=== PATIENT | male | born 1990 | race Caucasian/White ===

== ENCOUNTER 2019-06-02 22:14 | Emergency (ER) | payer SELFPAY ==
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
[2019-06-02] MEDS: MORPHINE SULFATE INJ 10 MG/ML VIAL IV ONE (22:39)
[2019-06-02] MEDS: SODIUM CHLORIDE 0.9% 1000ML 1,000 ML IVS PRN (22:39)
[2019-06-02] MEDS: ONDANSETRON INJ 4 MG/2 ML VIAL IV ONE (22:40)
[2019-06-02] MEDS: SODIUM CHLORIDE 0.9% (FLUSH) 10 ML SYG IV PRN (22:45)
--- NOTE | 2019-06-02 23:03 | RAD ---
EXAM DESCRIPTION: Shoulder,Left 2 or More Views CLINICAL HISTORY: 29 years Male, [place] COMPARISON: None. FINDINGS: No fracture or dislocation. Soft tissues are unremarkable. IMPRESSION: No acute abnormality. Electronically signed by: López Saleem MD 06/02/2019 11:01 PM CDT
[2019-06-02 23:46] VITALS: O2SAT 97
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
--- NOTE | 2019-06-02 23:55 | CT ---
CLINICAL HISTORY: trauma COMPARISON: None. TECHNIQUE: CT CERVICAL SPINE WITHOUT IV CONTRAST on 06/02/2019 10:27 PM CDT This exam was performed according to our departmental dose-optimization program, which includes automated exposure control, adjustment of the mA and/or kV according to patient size and/or use of iterative reconstruction technique. FINDINGS: There is no acute fracture. Alignment is anatomic. Disc spaces are maintained. Vertebral body heights are preserved. Soft tissues are unremarkable. IMPRESSION: No acute fracture or subluxation. Electronically signed by: Dillon Kelley MD 06/02/2019 11:54 PM CDT
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
[2019-06-03 00:32] VITALS: BP 132/90; TEMP 98.1
== END 2019-06-03 00:34 | disposition home or self-care (01) ==
LOC: ER 22:14
DX: S20.212A Contusion of left front wall of thorax, initial encounter (principal); S43.102A Unspecified dislocation of left acromioclavicular joint, initial encounter; S09.90XA Unspecified injury of head, initial encounter; S00.91XA Abrasion of unspecified part of head, initial encounter; W17.89XA Other fall from one level to another, initial encounter; Z87.891 Personal history of nicotine dependence; Y92.9 Unspecified place or not applicable
CPT/HCPCS: 70450; 71260; 72125; 73030; 74177; 80053; 80320; 85025; J2270; J2405; J7030

== ENCOUNTER 2020-03-22 22:36 | Emergency (ER) | payer SELFPAY ==
[2020-03-22] MEDS ORDERED: SODIUM CHLORIDE 0.9% 1000ML 1,000 ML IVS ONE (22:51)
[2020-03-22] MEDS ORDERED: TRANEXAMIC ACID 1,000 MG/10 ML VIAL IV ONE (22:51)
[2020-03-22] MEDS ORDERED: MORPHINE SULFATE INJ 10 MG/ML VIAL IV ONE (22:54)
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
[2020-03-22] MEDS: ONDANSETRON INJ 4 MG/2 ML VIAL IV ONE (23:13)
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
[2020-03-22 23:27] VITALS: TEMP 97.4
[2020-03-22] MEDS ORDERED: cefTRIAXone SODIUM 1 GM VIAL ONE (23:47)
[2020-03-22] MEDS ORDERED: TETANUS,DIPHTHERIA,PERTUSSIS 1 EA SYG IM ONE ×2 (23:47→23:48)
[2020-03-22] MEDS ORDERED: SODIUM CHL 0.9% 50ML MIN-BAG+ 50 ML IVPB ONE (23:47)
[2020-03-22] MEDS ORDERED: cefTRIAXone SODIUM 1 GM in SODIUM CHL 0.9% 50ML MIN-BAG+ 50 ML IVPB ONE (23:48)
[2020-03-23 02:55] VITALS: BP 107/83; O2SAT 96
== END 2020-03-22 23:58 | disposition short-term general hospital (02) ==
LOC: ER 22:36
DX: S31.104A Unspecified open wound of abdominal wall, left lower quadrant without penetration into peritoneal cavity, initial encounter (principal); R11.0 Nausea; X95.9XXA Assault by unspecified firearm discharge, initial encounter; Y93.02 Activity, running; Y92.830 Public park as the place of occurrence of the external cause; Z87.891 Personal history of nicotine dependence
CPT/HCPCS: 71250; 74176; 80053; 80307; 80320; 81001; 82550; 82553; 84484; 85025; 85610; 85730; 86922; 90471; 90715; J0696; J2270; J2405; J7030; J7050; P9016